=== PATIENT | female | born 1990 | race Caucasian/White ===

== ENCOUNTER → 2023-12-08 | Outpatient (CLI) | payer OTHER ==
[2023-12-08 12:11] VITALS: BP 129/84; PULSE 68; RESP 16
--- NOTE | 2023-12-08 14:41 | P.PAINPG ---
PQRS Measure Charge Sheet Comment: HISTORY OF PRESENT ILLNESS: A 33 yr old female as a referral from [facility] presents today w severe, chronic lower abdominal pain secondary to Pelvic Congestion Syndrome for evaluation. Pt states pain level is provoked at 10 /10 in intensity, intermittent, localized in the lower abdomin, predominantly axial, sharp in character without shooting pain . Pain has no provocation. Pain is alleviated by heat, ice, medications (Tyl, Ibu), repositioning and rest . PMH: OA PSH: Denies SH: Vaper, Occ ETOH, No illicit drug use FH: Non contributory All: See list Meds: See list REVIEW OF ORGAN SYSTEMS: CONSTITUTIONAL: No fevers or chills. No recent weight loss. NEUROLOGICAL: + numbness and tingling along the distal extremities. No seizure disorders or headaches. MUSCULOSKELETAL: + pain PSYCHIATRIC: Denies current depression or suicidal thoughts. Physical Examinations : Constitutional : Cooperative , not in acute distress . Neurologic : Cranial nerve II to XII intact. No focal neurological deficits. Psychiatric : alert & oriented x 3. Matching mood & appropriate affect. Judgment & insight intact. Musculoskeletal : +RLQ/ LLQ and inguinal TTP Cervical Spine Motor strength in the deltoid and biceps: Normal right side. Normal Left side Motor strength biceps and the wrist extensors: Normal right side . Normal left side Motor strength in the triceps muscle: Normal right side. Normal left side Deep tendon reflexes: Normal at the biceps. Normal at Brachioradialis. Normal at triceps Vertebral body tenderness to deep palpation over Cervical facet loading test: positive bilaterally Spurling test: positive bilaterally Neck distraction test: positive bilaterally Reji sign: positive bilaterally Lumbar spine Motor strength lower extremities ,thigh and legs 5/5 Right side , 5/5 Left side Deep tendon reflexes : Normal Knee Jerk. Normal Ankle Jerk Vertebral body tenderness over Castrejon Test positive Lumbar facet Loading Test: positive Right / positive Left Range of motion of the lumbar spine Flexion 30 degrees, extension 10 degrees Straight Leg Raise test: Left/ Right positive at degrees Don test: positive right / positive left. Severe tenderness over the Sacroiliac joint on the Right / Left sides Gaenslen test: positive bilaterally Seated flexion test: positive bilaterally. Sacral spine : Severe tenderness over the Sacroiliac joint: right side / left side Range of motion: Flexion of the lumbar spine <60 degrees Range of motion: Extension of the lumbar spine <20 degrees Gaenslen's Test positive Don test: positive right side / left side Thigh Thrust Test Sacral Thrust Test Imaging: Awaiting reports from [facility] Assessment/ Plan : Pelvic Congestion Syndrome Recommendation of Pudendal Nerve Block #1. Risks, benefits of procedure discussed and patient verbalized understanding. Admits to anti- coagulant use or medical history of diabetes. Protocol for discontinuation/ continuation of medications dylan procedure discussed. Minimal anesthesia provided, if clinically indicated, consisting of Versed and Fentanyl. All questions answered. I have spent greater than 30 minutes on patient care today. Dr Levine was available by phone for the evaluation of this patient. The time was used to review the medical records including relevant urine studies and Prescription history (MAPs), review of the available imaging, evaluation and examination of the patient, coordination of care with the medical staff and if applicable referring physicians, as well as creation of the medical record Controlled Substance Measures - Controlled Substance Measures Is patient prescribed a controlled substance at discharge?: No
== END ==
LOC: PNWHC3 10:20
PROVIDERS: ATTEND Specialist
DX: N94.89 Other specified conditions associated with female genital organs and menstrual cycle (principal)
CPT/HCPCS: 99202

== ENCOUNTER 2024-07-31 07:27 | Day surgery (SDC) | payer OTHER ==
[2024-07-28 15:09] VITALS: BMI 37.4
[2024-07-31] MEDS: SODIUM CHLORIDE 0.9% 1,000 ML IV SCH (07:38)
[2024-07-31 07:56] VITALS: RESP 16; TEMP 97.7
[2024-07-31] MEDS: IV FLUID CONTINUATION 1,000 ML IV ONE (10:09)
--- NOTE | 2024-07-31 11:05 | P.EPPROC ---
- EP Procedure Note Electrophysiology Procedure Note: Diagnosis recurrent presyncope Twelve-lead EKG shows sinus mechanism, OK interval of the upper limits of normal, no narrow QRS and normal ST segments Tilt table test per protocol Baseline blood pressure 111/89 mmHg, baseline heart rate 71 beats a minute She was tilted upright at an angle of 70 degrees per protocol No change in heart rate or blood pressure She had a episodes of dizziness but without any change in heart rate rhythm her blood pressure Impression Normal twelve-lead EKG Normal heart rate and blood pressure response to upright tilting
[2024-07-31 11:28] VITALS: BP 105/86; PULSE 66
== END 2024-07-31 11:08 | disposition home or self-care (01) ==
LOC: CATHEP 07:27
PROVIDERS: ATTEND Internal Medicine Clinical Cardiac Electrophysiology
DX: R55 Syncope and collapse (principal)
CPT/HCPCS: 81025; 93660

== ENCOUNTER → 2024-08-17 | Outpatient (CLI) | payer OTHER ==
[2024-08-17 13:25] VITALS: BP 105/78; PULSE 88; RESP 16; TEMP 97.3
--- NOTE | 2024-08-17 15:20 | P.PAINPG ---
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 Pt states she experienced 100% pain relief x 2 wks s/p procedure. Pt states pain level is provoked at 5-6 /10 in intensity, intermittent, localized in the lower abdomen, predominantly axial, sharp in character without shooting pain . Pain has no provocation. Pain is alleviated by heat, ice, medications, repositioning and rest. Interventional procedures include L Pudendal Nerve Block x1 (08/16) Medications include Tyl, Ibu REVIEW OF ORGAN SYSTEMS: CONSTITUTIONAL: No fevers or chills. No recent weight loss. NEUROLOGICAL: + numbness and tingling along the distal extremities. No seizure disorders or headaches. MUSCULOSKELETAL: + pain PSYCHIATRIC: Denies current depression or suicidal thoughts. Physical Examinations : Constitutional : Cooperative , not in acute distress . Neurologic : Cranial nerve II to XII intact. No focal neurological deficits. Psychiatric : alert & oriented x 3. Matching mood & appropriate affect. Judgment & insight intact. Musculoskeletal : LLQ and inguinal TTP Cervical Spine Motor strength in the deltoid and biceps: Normal right side. Normal Left side Motor strength biceps and the wrist extensors: Normal right side . Normal left side Motor strength in the triceps muscle: Normal right side. Normal left side Deep tendon reflexes: Normal at the biceps. Normal at Brachioradialis. Normal at triceps Vertebral body tenderness to deep palpation over Cervical facet loading test: positive bilaterally Spurling test: positive bilaterally Neck distraction test: positive bilaterally Reji sign: positive bilaterally Lumbar spine Motor strength lower extremities ,thigh and legs 5/5 Right side , 5/5 Left side Deep tendon reflexes : Normal Knee Jerk. Normal Ankle Jerk Vertebral body tenderness over Castrejon Test positive Lumbar facet Loading Test: positive Right / positive Left Range of motion of the lumbar spine Flexion 30 degrees, extension 10 degrees Straight Leg Raise test: Left/ Right positive at degrees Don test: positive right / positive left. Severe tenderness over the Sacroiliac joint on the Right / Left sides Gaenslen test: positive bilaterally Seated flexion test: positive bilaterally. Sacral spine : Severe tenderness over the Sacroiliac joint: right side / left side Range of motion: Flexion of the lumbar spine <60 degrees Range of motion: Extension of the lumbar spine <20 degrees Gaenslen's Test positive Don test: positive right side / left side Thigh Thrust Test Sacral Thrust Test Assessment/ Plan : Pelvic Congestion Syndrome Recommendation of L Pudendal Nerve Block #2. Risks, benefits of procedure discussed and patient verbalized understanding. Protocol for discontinuation/ continuation of medications dylan procedure discussed. All questions answered. I have spent greater than 30 minutes on patient care today. Dr Levine was available by phone for the evaluation of this patient. The time was used to re view the medical records including relevant urine studies and Prescription history (MAPs), review of the available imaging, evaluation and examination of the patient, coordination of care with the medical staff and if applicable referring physicians, as well as creation of the medical record - Pain Location Left Groin Non-Pharmacological Interventions: Heat, Ice, Inactivity Pharmacological Interventions: Block, PRN Medication PQRS Narrative: Blood Pressure 105/78 Pain Intensity [Left Groin] 5 Scale Used Numeric (1 - 10) Hx Alcohol Use (MH) Yes: OCCASIONAL Home Medications: Ambulatory Orders Ergocalciferol [Vitamin D2 (1250 Mcg = 21913 Iu)] 1,250 mcg PO WE 12/20/23 metFORMIN HCL [Glucophage] 500 mg PO DAILY PRN 12/20/23 Gabapentin 300 mg PO TID PRN 07/24/24 Prazosin HCl 1 mg PO HS 07/24/24 Thyroid,Pork [[place] Thyroid] 90 mg PO DAILY 07/28/24 diazePAM [Valium] 10 mg PO DAILY 1 Days #1 tab 08/17/24 Controlled Substance Measures - Controlled Substance Measures Is patient prescribed a controlled substance at discharge?: Yes When asked, does pt state using other controlled substances?: Yes If prescribed controlled substance>3 days was MAPS reviewed?: Prescribed <3 Days
== END ==
LOC: PNWHC3 13:09
PROVIDERS: ATTEND Specialist
DX: N94.89 Other specified conditions associated with female genital organs and menstrual cycle (principal); F12.90 Cannabis use, unspecified, uncomplicated; Z88.0 Allergy status to penicillin; Z91.040 Latex allergy status
CPT/HCPCS: 99211

== ENCOUNTER 2024-09-14 12:47 | Day surgery (SDC) | payer OTHER ==
[2024-09-12 11:14] VITALS: BMI 37.0
[2024-09-14 13:28] VITALS: TEMP 97.7
[2024-09-14 13:44] LABS: Glucose,Whole Blood 104 mg/dL (70-110)
[2024-09-14] MEDS: LACTATED RINGERS 1,000 ML IV SCH (13:44)
[2024-09-14] MEDS: IV FLUID CONTINUATION 1,000 ML IV ONE (14:00)
[2024-09-14] MEDS ORDERED: MIDAZOLAM 2 MG/2 ML VIAL ONE (14:24)
[2024-09-14] MEDS ORDERED: ROPIVACAINE 5 MG/ML 30 ML VIAL ONE (14:24)
[2024-09-14] MEDS ORDERED: fentaNYL (PF) 50 MCG/ML 2 ML AMP ONE (14:24)
[2024-09-14] MEDS ORDERED: methylPREDNISolone ACETATE 80 MG/ML 1 ML VIAL ONE (14:24)
[2024-09-14] MEDS: IV FLUID CONTINUATION 500 ML IV ONE (14:43)
--- NOTE | 2024-09-14 14:48 | P.PCN ---
Date of Procedure: 09/14/24 Procedure(s) Performed: Preoperative Diagnosis: 1-poor dental neuralgia 2-dyspareunia. 3- Postoperative Diagnosis: Same as above Procedure(s) Performed: Left pudendal nerve block with ultrasound and fluoroscopic guidance Anesthesia: Moderate sedation with Versed 1 mg and fentanyl 50 mcg IV. (Sedation start time 14:24, end time 14:31 ) Condition: stable Disposition: PACU Description of Procedure: The patient was seen in preop holding area. The patient's main complaint is left lower abdominal pain and dyspareunia and numbness and tingling sensation in the left peroneal area.. She was referred to our clinic for a trial of pudendal nerve block. The procedure was explained to the patient including possible weakness in the left lower extremity if the medicine spreads over to the sciatic nerve. . The skin was prepped with ChloraPrep and draped in a sterile manner. I then used a 21-gauge.PUJUNQ needle 5 inch in length slowly under ultrasound guidance to reach the area in between the sacral tubers and sacrospinous ligaments where the pudendal nerve usually lies. After visualization of the pudendal artery, I injected 10 mL of ropivacaine 0.5% mixed with 80 mg of Depo- Medrol injected intermittently after negative aspiration . The needle then was taken out intact. Band-Aid was placed at the skin entry site. Patient tolerated procedure well. She denies any numbness or tingling or any weakness in the left lower extremity.
[2024-09-14 15:12] VITALS: BP 118/73; PULSE 71; RESP 18
== END 2024-09-14 15:41 | disposition home or self-care (01) ==
LOC: ORPAIN 12:47
PROVIDERS: ATTEND Specialist
DX: N94.10 Unspecified dyspareunia (principal)
CPT/HCPCS: 64430; 81025; 99152